=== PATIENT | female | born 1950 ===

== ENCOUNTER 2018-01-10 12:18 | Emergency (ER) | payer MEDICARE ==
[2018-01-10 12:26] VITALS: BMI 37.8
[2018-01-10 12:32] VITALS: RESP 18
--- NOTE | 2018-01-10 13:21 | C.PDOC ---
History Of Present Illness 67yo female with history of right humeral fracture, comes to ER for evaluation of right shoulder injury after she fell yesterday. Patient states she had the initial right humeral surgery (open reduction and external fixation) performed by Dr. Chowdhury and recently had a left humerus surgery performed by him on September 2017. Patient states yesterday, she fell and landed on her right side, injuring her right shoulder; patient was evaluated at [facility] , had XR's and was informed she had a fracture next to the hardware on her right shoulder. Patient was given option for surgery at that facility but her daughter was not comfortable so the patient was placed in a splint and discharged with instructions to follow up with Dr. Chowdhury. Patient reports they contacted Dr. Chowdhury's office and was informed he was on vacation and was recommended to call Dr. Gilbert Momin as he is covering Dr. Chowdhury. Patient states she called Dr. Gilbert Momin's office and was informed to come to this ER for evaluation by him. At present, patient denies any numbness, tingling, head injury or loss of consciousness due to the fall. She offers no additional medical complaints. Time Seen by Provider: 01/10/18 12:57 Chief Complaint (Nursing): Medical Clearance History Per: Patient, Family History/Exam Limitations: no limitations Onset/Duration Of Symptoms: Days (1) Current Symptoms Are (Timing): Still Present Reports Recently: Seen In ED ([facility] yesterday) Additional History Per: Patient Past Medical History Reviewed: Historical Data, Nursing Documentation, Vital Signs Vital Signs: Last Vital Signs Temp 98.4 F 01/10/18 12:27 Pulse 77 01/10/18 12:27 Resp 18 01/10/18 12:27 BP 121/68 01/10/18 12:27 Pulse Ox 96 01/10/18 15:16 - Medical History PMH: HTN, Osteoporosis Other Surgeries: Left shoulder and right shoulder repair. Family History: States: No Known Family Hx - Social History Hx Alcohol Use: No Hx Substance Use: No - Immunization History Hx Tetanus Toxoid Vaccination: Yes Hx Influenza Vaccination: Yes Hx Pneumococcal Vaccination: Yes Review Of Systems Except As Marked, All Systems Reviewed And Found Negative. Constitutional: Negative for: Fever, Chills Musculoskeletal: Positive for: Shoulder Pain (right shoulder) Neurological: Negative for: Weakness, Numbness, Other (head injury, loss of consciousness) Physical Exam - Physical Exam Appears: Non-toxic Skin: Warm, Dry Head: Normacephalic Eye(s): bilateral: Normal Inspection Neck: Normal ROM, Supple Chest: Symmetrical Cardiovascular: Rhythm Regular Respiratory: Normal Breath Sounds Back: Normal Inspection Extremity: Capillary Refill (< 2 seconds), Other (Patient's right upper extremity is placed in a splint so full extremity exam is limited. Distal sensations intact, neurovascularly intact.) Neurological/Psych: Oriented x3, Normal Speech, Normal Cognition, Normal Sensation ED Course And Treatment - Laboratory Results Result Diagrams: 01/10/18 14:27 01/10/18 14:27 O2 Sat by Pulse Oximetry: 96 (RA) Pulse Ox Interpretation: Normal - Other Rad CXR X-Ray: Read By Radiologist Interpretation: FINDINGS: LUNGS: Clear. PLEURA: No pneumothorax or pleural fluid seen. CARDIOVASCULAR: Normal heart size. Mild tortuosity of the thoracic aorta. OSSEOUS STRUCTURES: Proximal bilateral shoulder prostatic arthroplasties present. VISUALIZED UPPER ABDOMEN: Normal. OTHER FINDINGS: None. IMPRESSION: No acute cardiopulmonary pathology noted. XR Right Shoulder X-Ray: Read By Radiologist Interpretation: FINDINGS: BONES: A comminuted fracture of the mid right rib shaft paralleling the right humeral intramedullary dimitri component noted. There is radiolucency along the inner aspect of the more proximal right humeral prostatic component of unknown chronicity. The right glenoid fossa prostatic component appears grossly intact. JOINTS: Right acromioclavicular joint arthrosis noted. No right shoulder dislocation appreciated. SOFT TISSUES: Normal. OTHER FINDINGS: None. IMPRESSION: Right humeral shaft displaced fracture -no right shoulder displacement. Right hip prostatic arthroplasty -as detailed above. XR Left Shoulder X-Ray: Read By Radiologist Interpretation: FINDINGS: BONES: Left shoulder prostatic arthroplasty. Left glenoid fossa prostatic component intact. The left humeral intramedullary dimitri with distal cerclage wires also intact. JOINTS: Acromioclavicular joint arthrosis. SOFT TISSUES: Normal. OTHER FINDINGS: None. IMPRESSION: The left shoulder prostatic arthroplasty status noted and appears intact. XR Left Humerus X-Ray: Read By Radiologist Interpretation: FINDINGS: BONES: Left shoulder prostatic arthroplasty. Left glenoid fossa prostatic component intact. The left humeral intramedullary dimitri with distal cerclage wires also intact. SOFT TISSUES: Normal. OTHER FINDINGS : None. IMPRESSION: Left shoulder prostatic arthroplasty. Left glenoid fossa prostatic component intact. The left humeral intramedullary dimitri with distal cerclage wires also intact.adiographs of left humerus. XR Right Humerus X-Ray: Read By Radiologist Interpretation: FINDINGS: BONES: A right total shoulder prosthesis is present. A comminuted butterfly like fracture of the mid humeral shaft bordering the distal humeral static stem an opponents is present. The fracture fragments of this distal stem level mid humeral shaft are displaced approximately 1.2 cm from each other. SOFT TISSUES: Normal. OTHER FINDINGS: None. IMPRESSION: Comminuted displaced right mid humeral shaft fracture. The right shoulder prosthetic component does not appear dislocated. However the right humeral mid to proximal shaft displaced fracture comminuted components parallels the right humeral intramedullary prostatic component XR Right Forearm X-Ray: Read By Radiologist Interpretation: FINDINGS: BONES: No fracture involving the forearm noted. The relative foreshortening of the ulnar side of the distal radial epiphysis/ articular surface and the dorsal subluxation of the ulna can be seen with Madelung's congenital deformity. Examination made through bandaging and partial casting material. JOINT SPACES: Radiocarpal joint space narrowing and arthrosis. Additional findings as noted above. OTHER FINDINGS: None. IMPRESSION: No fracture. 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 Progress Note: Case discussed with Dr. Gilbert Momin who states he does not know much about the patient and is requesting labs and XR's. Call received from Dr. Chowdhury who states he knows the patient and family well and does not wish Dr. Gilbert Momin to work on them. He is requesting a new splint to be placed; he is requesting a posterior and U-around splint. Martha Ly is in ER and will evaluate patient and place the splint as well. Patient to be discharged home, prescribed percocets for pain and instructed to see Dr. Chowdhury in his office on 01/16/18. Disposition - Disposition Referrals: Armand Chowdhury III, MD [Staff Provider] - Disposition: HOME/ ROUTINE Disposition Time: 15:27 Condition: STABLE Additional Instructions: Follow up with within 2-3 days. Return to ED if feel worse. Prescriptions: oxyCODONE/Acetaminophen [Percocet 5/325 mg Tab] 1 - 2 tab PO QID PRN #30 tab PRN Reason: Pain Instructions: Upper Arm Fracture Forms: [facility] ([place]) - Clinical Impression Clinical Impression: Fracture of humerus, right, closed - PA / FILM CLEANER / Resident Statement MD/DO has reviewed & agrees with the documentation as recorded. - Scribe Statement The provider has reviewed the documentation as recorded by the Marline Tejeda Provider Attestation: All medical record entries made by the Marline were at my direction and personally dictated by me. I have reviewed the chart and agree that the record accurately reflects my personal performance of the history, physical exam, medical decision making, and the department course for this patient. I have also personally directed, reviewed, and agree with the discharge instructions and disposition.
[2018-01-10] MEDS ORDERED: Sodium Chloride 0.9% 1,000 ML IV ONE (13:41)
--- NOTE | 2018-01-10 14:14 | RAD ---
PROCEDURE: Radiographs of the right humerus. HISTORY: fracture COMPARISON: None. FINDINGS: BONES: A right total shoulder prosthesis is present. A comminuted butterfly like fracture of the mid humeral shaft bordering the distal humeral static stem an opponents is present. The fracture fragments of this distal stem level mid humeral shaft are displaced approximately 1.2 cm from each other. SOFT TISSUES: Normal. OTHER FINDINGS: None. IMPRESSION: Comminuted displaced right mid humeral shaft fracture. The right shoulder prosthetic component does not appear dislocated. However the right humeral mid to proximal shaft displaced fracture comminuted components parallels the right humeral intramedullary prostatic component Comments: Study marked for PA review.
--- NOTE | 2018-01-10 14:15 | RAD ---
Date of service: 01/10/2018 PROCEDURE: CHEST RADIOGRAPH, 1 VIEW HISTORY: Pre Op COMPARISON: None available. FINDINGS: LUNGS: Clear. PLEURA: No pneumothorax or pleural fluid seen. CARDIOVASCULAR: Normal heart size. Mild tortuosity of the thoracic aorta. OSSEOUS STRUCTURES: Proximal bilateral shoulder prostatic arthroplasties present. VISUALIZED UPPER ABDOMEN: Normal. OTHER FINDINGS: None. IMPRESSION: No acute cardiopulmonary pathology noted.
--- NOTE | 2018-01-10 14:17 | RAD ---
Date of service: 01/10/2018 PROCEDURE: Radiographs of the Right Shoulder HISTORY: fall COMPARISON: A right humeral x-ray study is noted from the same day this exam FINDINGS: BONES: A comminuted fracture of the mid right rib shaft paralleling the right humeral intramedullary dimitri component noted. There is radiolucency along the inner aspect of the more proximal right humeral prostatic component of unknown chronicity. The right glenoid fossa prostatic component appears grossly intact. JOINTS: Right acromioclavicular joint arthrosis noted No right shoulder dislocation appreciated SOFT TISSUES: Normal. OTHER FINDINGS: None. IMPRESSION: Right humeral shaft displaced fracture -no right shoulder displacement. Right hip prostatic arthroplasty -as detailed above.
--- NOTE | 2018-01-10 14:19 | RAD ---
Date of service: 01/10/2018 PROCEDURE: Radiographs of the Left Shoulder HISTORY: fall COMPARISON: No comparison of the left shoulder FINDINGS: BONES: Left shoulder prostatic arthroplasty. Left glenoid fossa prostatic component intact. The left humeral intramedullary dimitri with distal cerclage wires also intact. JOINTS: Acromioclavicular joint arthrosis. SOFT TISSUES: Normal. OTHER FINDINGS: None. IMPRESSION: The left shoulder prostatic arthroplasty status noted and appears intact.
[2018-01-10] MEDS ORDERED: Oxycodone/Acetaminophen 5/325 mg Tab PO STA (14:25)
[2018-01-10 14:31] LABS: BASO # 0.1 K/uL (0.0-0.2); BASO % 0.8 % (0.0-2.0); EOS # 0.1 K/uL (0.0-0.7); EOS % 0.8 % (0.0-4.0); HEMOGLOBIN 11.8 g/dL (11.0-16.0); LYMPH # 2.8 K/uL (1.0-4.3); LYMPH % 25.1 % (20.0-40.0); MEAN CELL VOLUME 91.5 fL (81.0-99.0); MEAN CORPUSCULAR HEMOGLOBIN 31.1 pg (27.0-31.0); MEAN PLATELET VOLUME 7.7 fL (7.2-11.7); MONO # 0.9 K/uL (0.0-0.8); MONO % 8.1 % (0.0-10.0); NEUT # 7.4 K/uL (1.8-7.0); NEUT % 65.2 % (50.0-75.0); RBC 3.8 Mil/uL (3.80-5.20); RED CELL DISTRIBUTION WIDTH 14.9 % (11.5-14.5); WHITE BLOOD COUNT 11.3 K/uL (4.8-10.8)
[2018-01-10] MEDS ORDERED: Oxycodone/Acetaminophen 5/325 mg Tab ONE (14:37)
--- NOTE | 2018-01-10 14:38 | RAD ---
PROCEDURE: Radiographs of the left humerus. HISTORY: fall COMPARISON: None. FINDINGS: BONES: Left shoulder prostatic arthroplasty. Left glenoid fossa prostatic component intact. The left humeral intramedullary dimitri with distal cerclage wires also intact. SOFT TISSUES: Normal. OTHER FINDINGS: None. IMPRESSION: Left shoulder prostatic arthroplasty. Left glenoid fossa prostatic component intact. The left humeral intramedullary dimitri with distal cerclage wires also intact.adiographs of left humerus.
--- NOTE | 2018-01-10 14:49 | RAD ---
PROCEDURE: Radiographs of the Right Forearm HISTORY: fall COMPARISON: None available. TECHNIQUE: Frontal and lateral views obtained. FINDINGS: BONES: No fracture involving the forearm noted The relative foreshortening of the ulnar side of the distal radial epiphysis/articular surface and the dorsal subluxation of the ulna can be seen with Madelung's congenital deformity Examination made through bandaging and partial casting material JOINT SPACES: Radiocarpal joint space narrowing and arthrosis Additional findings as noted above. OTHER FINDINGS: None. IMPRESSION: No fracture. 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
[2018-01-10 14:50] LABS: ALB/GLOB RATIO 1.5 (1.0-2.1); ALBUMIN 4.6 g/dL (3.5-5.0); CALCIUM 8.4 mg/dl (8.6-10.4)
[2018-01-10 15:45] VITALS: BP 120/74; PULSE 87; TEMP 98.6
--- NOTE | 2018-01-10 15:54 | CP.PCM.CON ---
History of Present Illness - History of Present Illness History of Present Illness: Orthopedic consult Patient is a 67 y/o female with PMH of HTN and osteoporosis presents to [facility] ER with c/o R shoulder pain. She describes losing her balance and falling onto her R shoulder last night due to weakness of her legs. She experienced severe sudden R shoulder pain and was brought to [facility] ER for evaluation. An sap specialist recommended surgery however the patient requested return to [facility] to be evaluated and treated by her orthopedic physician, Dr. Chowdhury. The patient has a history of R reverse total shoulder replacement by Dr. Chowdhury on 09/06/14. She also had L reverse TSR performed on 09/05/17. Currently her pain is moderate, sharp and intermittent. The pain is worsened with activity and is alleviated with immobilization. It is associated with deformity and swelling. She denies radiation of pain, numbness or tingling. She also denies CP/SOB/N/V/D/fever/MCGUIRE/dysuria/melena. Review of Systems - Review of Systems All systems: reviewed and no additional remarkable complaints except Review of Systems: as per HPI Past Patient History - Past Medical History & Family History Past Medical History?: Yes Past Family History: Reviewed and not pertinent - Past Social History Smoking Status: Former Smoker Alcohol: None Drugs: Denies - CARDIAC Hx Hypertension: Yes - PULMONARY Hx Respiratory Disorders: No - NEUROLOGICAL Hx Neurological Disorder: No - HEENT Hx HEENT Problems: No - RENAL Hx Chronic Kidney Disease: No - ENDOCRINE/METABOLIC Hx Endocrine Disorders: No - HEMATOLOGICAL/ONCOLOGICAL Hx Blood Disorders: No - INTEGUMENTARY Hx Dermatological Problems: No - MUSCULOSKELETAL/RHEUMATOLOGICAL Hx Musculoskeletal Disorders: Yes Hx Osteoporosis: Yes - GASTROINTESTINAL Hx Gastrointestinal Disorders: No - GENITOURINARY/GYNECOLOGICAL Hx Genitourinary Disorders: No - PSYCHIATRIC Hx Psychophysiologic Disorder: No Hx Substance Use: No - SURGICAL HISTORY Hx Surgeries: Yes Hx Orthopedic Surgery: Yes (R knee replacement- B/l reverse TSR) - ANESTHESIA Hx Anesthesia: Yes Hx Anesthesia Reactions: No Meds Home Medications: Home Medication List Medication Instructions Recorded Confirmed Type oxyCODONE/Acetaminophen [Percocet 1 - 2 tab PO QID PRN #30 tab 01/10/18 Rx 5/325 mg Tab] Allergies/Adverse Reactions: Allergies Allergy/AdvReac Type Severity Reaction Status Date / Time No Known Allergies Allergy Verified 01/10/18 12:25 Physical Exam - Constitutional Appears: Well, No Acute Distress - Head Exam Head Exam: ATRAUMATIC, NORMOCEPHALIC - Eye Exam Eye Exam: EOMI, Normal appearance, PERRL - ENT Exam ENT Exam: Mucous Membranes Moist, Normal Exam - Respiratory Exam Respiratory Exam: Clear to Auscultation Bilateral, NORMAL BREATHING PATTERN - Cardiovascular Exam Cardiovascular Exam: +S1, +S2 - GI/Abdominal Exam GI & Abdominal Exam: Normal Bowel Sounds, Soft - Extremities Exam Additional comments: RUE: Long arm posterior splint intact no lesions, moderate swelling, + deformity sensation intact AXN/MN/UN/RN motor intact MN/UN/RN radial pulse intact comps soft LUE: no lesions, no swelling, no deformity sensation intact AXN/MN/UN/RN motor intact MN/UN/RN radial pulse intact Results - Vital Signs Recent Vital Signs: Last Vital Signs Temp 98.6 F 01/10/18 15:44 Pulse 87 01/10/18 15:44 Resp 18 01/10/18 15:44 BP 120/74 01/10/18 15:44 Pulse Ox 100 01/10/18 15:44 - Labs Result Diagrams: 01/10/18 14:27 01/10/18 14:27 Labs: Laboratory Results - last 24 hr 01/10/18 01/10/18 01/10/18 14:27 14:27 14:27 WBC 11.3 H RBC 3.80 Hgb 11.8 Hct 34.7 MCV 91.5 MCH 31.1 H MCHC 34.0 RDW 14.9 H Plt Count 380 MPV 7.7 Neut % (Auto) 65.2 Lymph % (Auto) 25.1 Kingfisher % (Auto) 8.1 Eos % (Auto) 0.8 Baso % (Auto) 0.8 Neut # (Auto) 7.4 H Lymph # (Auto) 2.8 Kingfisher # (Auto) 0.9 H Eos # (Auto) 0.1 Baso # (Auto) 0.1 PT 11.0 INR 1.0 APTT 29 Sodium 138 Potassium 5.1 Chloride 101 Carbon Dioxide 24 Anion Gap 18 BUN 19 H Creatinine 1.1 Est GFR ( Amer) 60 Est GFR (Non-Af Amer) 49 Random Glucose 94 Calcium 8.4 L Total Bilirubin 0.8 AST 57 H ALT 40 Alkaline Phosphatase 93 Total Protein 7.5 Albumin 4.6 Globulin 3.0 Albumin/Globulin Ratio 1.5 Blood Type Antibody Screen 01/10/18 14:27 WBC RBC Hgb Hct MCV MCH MCHC RDW Plt Count MPV Neut % (Auto) Lymph % (Auto) Kingfisher % (Auto) Eos % (Auto) Baso % (Auto) Neut # (Auto) Lymph # (Auto) Kingfisher # (Auto) Eos # (Auto) Baso # (Auto) PT INR APTT Sodium Potassium Chloride Carbon Dioxide Anion Gap BUN Creatinine Est GFR ( Amer) Est GFR (Non-Af Amer) Random Glucose Calcium Total Bilirubin AST ALT Alkaline Phosphatase Total Protein Albumin Globulin Albumin/Globulin Ratio Blood Type O POSITIVE Antibody Screen Negative Assessment & Plan (1) Periprosthetic fracture around internal prosthetic right shoulder joint Assessment and Plan: -Dr. Chowdhury proposes immobilization and follow up in office to schedule ORIF R humerus, possible revision R reverse TSR -Posterior long arm/coaptation splint applied -preop labs -Will see in office on Wednesday 01/17 -ok to discharge home with pain medication -above d/w Dr. Chowdhury in agreement Status: Acute - Date & Time Date: 01/10/18 Time: 15:00 Radiology Interpretation - Drilling Field Professional Drilling Field Professional:: Radiologist - Notes: Notes:: Accession No. : [id number] Patient Name / ID : SAJAN DALTON / [id number] Exam Date : 01/10/2018 13:47:47 ( Approved ) Study Comment : Sex / Age : F / 67Y Creator : Tangela Hackett V. Dictator : Tangela Hackett V. Party Bus Driver : Pediatrics Teacher : Tangela Hackett V. Approver2 : Report Date : 01/10/2018 14:16:29 My Comment : Date of service: 01/10/2018 PROCEDURE: Radiographs of the Right Shoulder HISTORY: fall COMPARISON: A right humeral x-ray study is noted from the same day this exam FINDINGS: BONES: A comminuted fracture of the mid right rib shaft paralleling the right humeral intramedullary dimitri component noted. There is radiolucency along the inner aspect of the more proximal right humeral prostatic component of unknown chronicity. The right glenoid fossa prostatic component appears grossly intact. JOINTS: Right acromioclavicular joint arthrosis noted No right shoulder dislocation appreciated SOFT TISSUES: Normal. OTHER FINDINGS: None. IMPRESSION: Right humeral shaft displaced fracture -no right shoulder displacement. Right hip prostatic arthroplasty -as detailed above. - Radiology Interpretation #2 Interpretation: Accession No. : [id number] Patient Name / ID : SAJAN DALTON / [id number] Exam Date : 01/10/2018 13:27:51 ( Approved ) Study Comment : Sex / Age : F / 67Y Creator : Tangela Hackett V. Dictator : Tangela Hackett V. Party Bus Driver : Pediatrics Teacher : Tangela Hackett V. Approver2 : Report Date : 01/10/2018 14:13:04 My Comment : PROCEDURE: Radiographs of the right humerus. HISTORY: fracture COMPARISON: None. FINDINGS: BONES: A right total shoulder prosthesis is present. A comminuted butterfly like fracture of the mid humeral shaft bordering the distal humeral static stem an opponents is present. The fracture fragments of this distal stem level mid humeral shaft are displaced approximately 1.2 cm from each other. SOFT TISSUES: Normal. OTHER FINDINGS: None. IMPRESSION: Comminuted displaced right mid humeral shaft fracture. The right shoulder prosthetic component does not appear dislocated. However the right humeral mid to proximal shaft displaced fracture comminuted components parallels the right humeral intramedullary prostatic component Comments: Study marked for PA review. Procedures - Time-Out Type of Procedure: Application of Long arm splint/coaptation splint Site of Procedure: RUE Correct Patient: Yes Correct Procedure: Yes Correct Site Marked: Yes X-Ray Marked: Yes Medication Recon: Yes PA/Tech: Malachi TENORIOC - Splinting Location: RUE Hand-Made Type: orthoglass Splint: Coaptation/posterior long arm Pre-Proc Neuro Vasc Exam: normal Post-Proc Neuro Vasc Exam: normal
[2018-01-10 19:01] VITALS: O2SAT 96
== END 2018-01-10 15:45 | disposition home or self-care (01) ==
LOC: C.ER 12:18
DX: S42.351D Displaced comminuted fracture of shaft of humerus, right arm, subsequent encounter for fracture with routine healing (principal); W01.0XXD Fall on same level from slipping, tripping and stumbling without subsequent striking against object, subsequent encounter; I10 Essential (primary) hypertension; M81.0 Age-related osteoporosis without current pathological fracture